=== PATIENT | female | born 1980 | race Caucasian/White ===

== ENCOUNTER 2017-01-12 20:46 | Emergency (ER) | payer OTHER ==
[~2017-01-12] VITALS: Ht 172.7 cm; Wt 77.0 kg
[2017-01-12 21:45] VITALS: Ht 172.7 cm; Wt 77.0 kg
[2017-01-12] MEDS ORDERED: HYDROmorphONE 2 MG/ML SYG IM STA (22:43)
[2017-01-12] MEDS ORDERED: HYDR-906 PO (23:08)
[2017-01-12] MEDS ORDERED: IBUP-1542 PO (23:09)
--- NOTE | 2017-01-12 23:14 | ERD ---
ER Documentation Chief Complaint Date/Time DATE: 01/12/17 TIME: 23:11 Chief Complaint Pt report back pain and sciatica HPI This is a 36-year-old female that presents to the ER with sciatica pain. Patient states that she fell and tripped hitting her. This made her sciatica worse. Patient states that typically when it was replaced to the ER she gets 2 mg of Dilaudid and this helps her pain. Patient denies any numbness or tingling of the leg. She denies any urinary or bowel incontinence. She denies any IV drug use. She denies any fevers or chills. Patient denies any urinary frequency or dysuria. ROS 12 point review of systems was done, all negative except per HPI. Medications Home Meds Active Scripts Ibuprofen* (Motrin*) 600 Mg Tab, 600 MG PO Q6, #30 TAB Prov:ALLISON,KHADIJAH C 01/12/17 Hydrocodone/Acetaminophen ([place] 5-325 Tablet) 1 Each Tablet, 1 TAB PO Q6H Y for PAIN, #10 TAB Prov:ALLISONKHADIJAH C 01/12/17 Allergies Allergies: Coded Allergies: No Known Allergy (Unverified , 01/12/17) PMhx/Soc Medical and Surgical Hx: pt denies Surgical Hx Hx Psychiatric Problems: Yes (depression/anxiety) Hx Alcohol Use: No Hx Substance Use: No Hx Tobacco Use: No Smoking Status: Never smoker Physical Exam Vitals Vital Signs Date Time Temp Pulse Resp B/P Pulse Ox O2 Delivery O2 Flow Rate FiO2 01/12/17 21:45 100.2 92 20 117/78 96 Physical Exam GENERAL: The patient is well developed and appropriate for usual state of health , in no apparent distress. HEENT: Atraumatic. CHEST: Clear to auscultation bilaterally. There are no rales, wheezes or rhonchi. HEART: Regular rate and rhythm. No murmurs, clicks, rubs or gallops EXTREMITIES: Left knee: Patient has full range of motion of her left knee is nonpainful. No erythema no edema. There is no hip pain or ankle pain. She has full range of motion of both joints. She is neurovascularly intact to her left extremity. NEURO: Alert and oriented. . SKIN: There is no apparent rash or petechia. The skin is warm and dry. Results 24 hrs Current Medications Medications (Trade) Dose Ordered Sig/Krystian Route PRN Reason Start Time Stop Time Status Last Admin Dose Admin Hydromorphone HCl (Dilaudid) 2 mg ONCE STAT IM 01/12/17 22:43 01/12/17 22:46 DC Procedures/MDM Differential Diagnosis includes but is not limited to back strain, vertebral fracture, epidural abscess, cauda equina, herniated disc, AAA rupture, kidney stones, UTI, pyelonephritis. Patient appears to have an exacerbation of her sciatica. Patient was given Dilaudid here in the ER. She is significantly better. Patient will be sent home with [place] and with ibuprofen. She is to follow-up with her primary care doctor within 1-2 days to the ER sooner if symptoms worsen. My medical decision making sure with the patient she understands and agrees with plan. Departure Diagnosis: Primary Impression: Sciatica Condition: Stable Patient Instructions: Back Pain W/ Sciatica Additional Instructions: Call your primary care doctor TOMORROW for an appointment during the next 1-2 days.See the doctor sooner or return here if your condition worsens before your appointment time. KHADIJAH COOPER Jan 12, 2017 23:14
--- NOTE | 2017-01-13 00:18 | RADRPT ---
PROCEDURE: XR Knee. CLINICAL INDICATION: Left knee pain. TECHNIQUE: Three views of the left knee. COMPARISON: None available FINDINGS: There is no acute fracture or dislocation. A 1.2 cm sclerotic focus in the proximal tibia probably r epresents a bone island. The joint spaces are preserved. No joint effusion is identified. IMPRESSION: 1. No acute fracture or dislocation of the left knee. RPTAT: HTAR .Dakota Castellon MD, MD Date Time Electronically viewed and signed by .Dakota Castellon MD, MD on 01/13/2017 00:17 .R/
[2017-01-13 00:26] LABS: URINE BLOOD (Dip) POC Trace-intact (NEGATIVE)
[2017-01-13 04:00] VITALS: BP 110/71; PULSE 88; RESP 18; TEMP 98.8
== END 2017-01-13 04:14 | disposition home or self-care (01) ==
LOC: FTE 20:46
DX: S39.92XA Unspecified injury of lower back, initial encounter (principal); W01.0XXA Fall on same level from slipping, tripping and stumbling without subsequent striking against object, initial encounter; Y92.9 Unspecified place or not applicable
CPT/HCPCS: 73562; 81003; 96372; J1170; Z7502